=== PATIENT | female | born 1965 | race Caucasian/White ===

== ENCOUNTER 2017-09-29 11:01 | Inpatient (IN) | payer OTHER, SELFPAY ==
--- NOTE | 2017-09-26 08:12 | EKG12_ITS ---
Test Reason : PREOP Blood Pressure : / mmHG Vent. Rate : 058 BPM Atrial Rate : 058 BPM P-R Int : 132 ms QRS Dur : 074 ms QT Int : 406 ms P-R-T Axes : 039 -04 005 degrees QTc Int : 398 ms Sinus bradycardia Moderate voltage criteria for LVH, may be normal variant Borderline ECG Confirmed by HARITHA FRANKLIN, ASHLEY ([id number]), school photograph editor ARTURO NEWTON ([id number]) on 09/28/2017 2:29:24 PM Referred By: BHANU Confirmed By:ASHLEY MG MD
[2017-09-26 08:55] LABS: Prothrombin Time (Protime)PT. 12.9 SECONDS (11.7-14.9)
[2017-09-26 08:56] LABS: Partial Thromboplast Time 28.6 Seconds (24.1-36.2)
[2017-09-26 09:26] LABS: AST(SGOT) 14 U/L (15-37); Alanine Aminotransfer ALT/SGPT 27 U/L (13-56); Albumin, Serum 3.4 g/dL (3.2-5.0); Alkaline Phosphatase 113 U/L (45-117); Bilirubin, Direct 0.06 mg/dL (0.00-0.30); Globulin 3.9 g/dL (2.2-4.2); Protein, Total 7.3 g/dL (6.4-8.2)
[2017-09-29] VITALS (10 sets, daily range): BP systolic 101–137; BP diastolic 59–82; PULSE 55–76; RESP 16–18; TEMP 36.4–36.6; O2SAT 92–100; BMI 42.4
--- NOTE | 2017-09-29 | IMM_PTH ---
PATIENT: OSCAR FAGAN LOC: MS2 U#:[id number] AGE/SX: 51/F [place] [facility] RE09/29/[address]: Dr. Sky Jade MD : 1965 BED: 1 DIS: 10/02/2017 SPEC #: [id number] RECD: 10/02/17 13:02 STATUS: IONA REEvan #: [id number] BAUTISTA: 09/29/17 00:[address]: Sky Jade DEPT: IMMUNOHISTOCHEMISTRY RECD BY: Tiffany Stark ENTERED: 10/02/17 13:04 SP TYPE: IMMUNO OTHR DR: Dr. Ashish Partida DO Tissues: A - Right colon Procedures: MSH2 (add) MLH-1 (add) MSH6 (add) Anti-PMS2 (add) CHAUDHARY-2 (add) P53 (add) KI-67 (initial) PHYSICIAN & INSTITUTION [place] [id number] SPECIMEN INFORMATION: Tissue Source: A ? Right colon Clinical Info: Cecum mass, invasive adenocarcinoma Specimen Number: [id number] CPT code: 38690, 91741 x6 METHODOLOGY: Deparaffinized sections of prefer/formalin-fixed tissue or PAP/DQ stained slides are incubated with monoclonal/polyclonal antibodies/oligonucleotide probes. Localization is made via biotin free immunoperoxidase method. Appropriate controls are performed and reacted as expected. Results on target cell population are indicated in the following table: RESULTS: ANTIBODY / CLONE RESULT Block A COLON CANCER PROFILE (Prognostic Markers) Ki-67 (30-9) positive, high P53 (DO-7) negative MSH2 (25D12) positive MSH6 (44) positive MLH-1 (M1) positive PMS2 (ZVG1084) positive CHAUDHARY-2 (SP21) positive These tests were developed and their performance characteristics determined by [facility]. They may not have been cleared or approved by the U.S. Food and Drug Administration. The FDA has determined that such clearance or approval is not necessary. INTERPRETATION: A. Right colon, hemicolectomy: Invasive adenocarcinoma. Result of Microsatellite Instability Study: Negative (no loss of mismatch protein; no microsatellite instability detected). SJ:griselda 10/05/17
--- NOTE | 2017-09-29 13:00 | COL._PTH ---
PATIENT: OSCAR FAGAN LOC: MS2 U#:[id number] AGE/SX: 51/F ROOM: [facility]216 RE09/29/[address]: Dr. Sky Jade MD : 1965 BED: 1 DIS: 10/02/2017 SPEC #: [id number] RECD: 09/30/17 11:14 STATUS: IONA ROCKY #: [id number] BAUTISTA: 09/29/17 13:[address]: Sky Jade DEPT: SURGICAL PATHOLOGY RECD BY: Dhruv Siddiqui ENTERED: 09/30/17 11:14 SP TYPE: COLON OTHR DR: Dr. Ashish Partida DO Tissues: A - Colon, NOS B - HERNIA Procedures: Surgery Specimen Level II Surgery Specimen Level HEADER OPERATION: Laparoscopic colectomy, partial right hemicolectomy PRE-OP DIAGNOSIS: Cecum mass, invasive adenocarcinoma TISSUE SUBMITTED: A ? Right colon, B ? Hernia sac MICROSCOPIC DIAGNOSIS A. Right colon, hemicolectomy: Invasive adenocarcinoma. One out of 24 lymph nodes positive for metastatic carcinoma. B. Hernia sac: Mesothelial-lined fibroadipose, fibroconnective tissue and smooth muscle tissue, consistent with hernia sac. COLON CANCER SUMMARY: Specimen ? terminal ileum, cecum, appendix and ascending colon Procedure ? right hemicolectomy Specimen length ? cecum with ascending colon 14 cm, small intestine 6 cm, appendix 5 cm in length and 0.5 cm in diameter Tumor site ? cecum, ascending colon Tumor size ? 0.8 x 0.7 cm (measured microscopically, the polyp measures 2.5 x 2.5 x 0.5 cm). Macroscopic tumor perforation ? not identified Histologic type - adenocarcinoma Histologic grade ? low grade (moderately differentiated) Histologic features suggestive of Microsatellite Instability: Intratumoral lymphocytic response (tumor infiltrating lymphocyte) - mild Peritumoral lymphocytic response (Crohn-like) - mild Tumor subtype and differentiation: - Mucinous tumor component ? not identified - Medullary tumor component - not identified - High histologic grade ? poorly differentiated ? present, <5% of the tumor Microscopic tumor extension ? tumor invades submucosa Margins ? margins are free of tumor. The tumor is 6 cm away from the closest proximal axial margin. Treatment effect ? no known prior treatment. Lymph-Vascular invasion ? not identified Perineural invasion ? not identified Tumor deposits ? 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 not applicable Additional pathologic findings ? appendix with focal hyperplastic changes Ancillary studies: See microsatellite instability study by IHC ([id number]) for complete details. Microsatellite instability - Negative (no loss of mismatch protein; no microsatellite instability detected). Immunohistochemistry Studies for Mismatch Repair Proteins: MLH1 - Intact nuclear positivity, tumor cells MSH2 - Intact nuclear positivity, tumor cells MSH6 - Intact nuclear positivity, tumor cells PMS2 - Intact nuclear positivity, tumor cells PATHOLOGIC STAGE: pT1 pN1a Mx The above summary is in compliance with [employer] [place] [employer] (CAP) Cancer Protocols Checklist and [place] Joint Committee on Cancer (AJCC), Staging Manual, 8th Ed. SJ:griselda 10/05/17 COMMENT A.The focus of metastasis in the lymph node measures 0.5 x 0.5 cm. Extranodal extension is not seen. MICROSCOPIC DESCRIPTION Slides are reviewed. GROSS DESCRIPTION A - Received in fixative is one container labeled with the patient's name and designated right colon. The specimen consists of a right hemicolectomy specimen, previously opened, consisting of cecum with ascending colon, segment of small intestine, appendix, attached pericolonic adipose tissue and omentum. The cecum with ascending colon measures 14 cm in length. The small intestine measures 6 cm in length. The appendix measures 5 cm in length and 0.5 cm in diameter. Both resection margins are stapled. The lumen contains a small amount of fecal material. There is a sessile, polypoid mass adjacent to the ileocecal valve in the cecum/ascending colon area identified by a suture measuring 2.5 x 2.5 x 0.5 cm. No other lesion is identified. The omentum measures 10 x 10 x 3 cm. Sections of omentum do not reveal any mass lesion. Sections of pericolonic adipose tissue show two lymph nodes. The largest lymph node measures 1.5 cm in greatest dimension. Sections will be submitted after overnight fixation. / SJ:griselda 09/30/17 Sections of the appendix reveal pinpoint lumen. Sections of the tumor do not reveal involvement into the underlying adipose tissue. No other mucosal lesion is identified. Sections of the pericolonic adipose tissue reveal multiple lymph nodes. The largest lymph node measures 1.5 cm in greatest dimension. The pericolonic adipose tissue is fixed in lymph node revealing solution. Digital Camera Technician sections are submitted as follows: 1 ? appendix, 2 ? proximal and distal resection margins, 3-6 ? tumor, entirely submitted, 7 ? service representative section of ileocecal valve, small and large intestine, 8 ? omentum, 9 ? multiple lymph nodes, 10 ? multiple lymph nodes, 11 ? one bisected lymph node, 12 - one bisected lymph node, 13 ? multiple lymph nodes, 14 - one bisected lymph node (largest lymph node), 15 ? multiple lymph nodes. / JEREMY:griselda 10/01/17 B - Received in fixative is one container labeled with the patient's name and designated hernia sac. The specimen consists of a piece of congested soft tissue measuring 5 x 3.5 x 1 cm. No mass lesion is identified. Digital Camera Technician sections are submitted in one cassette. / JEREMY:griselda 09/30/17 TC:0 CPT: 26201, 95099
[2017-09-29] MEDS: Bupivacaine Mpf 0.5% 30 ML VIAL (17:33)
--- NOTE | 2017-09-29 17:40 | OP.PCM_ITS ---
Report of Operation Date of Procedure: 09/29/17 Pre-Operative Diagnosis: cecal colon cancer Post-Operative Diagnosis: cecal colon cancer - Surgery/Procedure Performed:: laparoscopic right hemicolectomy outside cutter hand: Brittany Mcdowell outside cutter hand: Bryson Chandler Type of Anesthesia:: General Anesthesiologist: Bobby Mistry - ASA2 Specimen's removed: right colon, hernia sac Drains: none Estimated Blood Loss (mL): 100 Fluids Replaced: 2000 Description of Procedure: The patient was brought to the operating suite. Sign in was performed verifying patient, site, procedure, position, and DVT prophylaxis with SCDs. Patient 2 g of cefotetan. Preoperative bowel prep of mechanical and antibiotic comprised of GoLYTELY and then neomycin and Flagyl 1 g 3 doses evening before was given Following induction of general anesthetic. The patient?s abdomen was prepped and draped in the usual fashion. Timeout was performed verifying patient, site , position. Local anesthetic was injected below the umbilicus. the patient had a previous umbilical to below the midline incision with the scar going through the umbilicus. The keloid scar was excised completely Incision made and dissection carried down to the umbilical root fascia. 2 stay sutures were placed. Incision made in the fascia, the peritoneum entered under direct visualization. A 10 mm Hackett trocar was inserted and secured with the stay sutures. Pneumoperitoneum to 15 mmHg was insufflated. Visual inspection revealed omentum stuck at the level the umbilicus and unknown fascial defect approximately 6 cm below the umbilicus with omentum incarcerated into that defect. Harmonic Scalpel was used to mobilize the omentum from its adhesions at the level the umbilicus. The hernia defect with incarcerated omentum was then reduced with pressure and the Harmonic scalpel.. 1 - 5 mm port was placed below the level of umbilicus and 2 5mm ports were placed in the standard midline position [place] level of umbilicus. Mobilization the avascular plane was undertaken from the base of the cecum up and around the hepatic flexure. Division of the lesser sac from the midline to the hepatic flexure was undertaken. When this was fully mobilized. the patient had a previous laparoscopic cholecystectomy. The transverse colon and lesser sac were adherent to the liver at the site of the cholecystectomy incision. This required significant mobilization off of the liver and the lesser sac was somewhat adherent to the transverse colon through dissection. Later on .The duodenum was visualized from the right flank region. Next, the terminal ileum area was brought up and a cleavage point noted in the mesentery. Harmonic Scalpel was used to create a window in the terminal ileal mesentery and division was taken down to the ileocolic root. Next the transverse colon was grasped and the vasculature coming from the middle colic vessel was identified. A window was made in the bare area proximal to the middle colic vessels just overlying the duodenal sweep. This was also fully divided. Dissection was then carried out at the ileal colic vessel root. The artery and vein were identified and doubly clipped proximally and singly clipped distally with Hem-o-alon clips. the omentum was divided at the midpoint of the transverse colon with plans to have the proximal half of the omentum sent with the specimen. With full dissection of the mesentery and full mobilization the colon, the umbilical incision was extended and a wound protector placed. The terminal ileum and cecum ascending colon part of the transverse colon were delivered through the wound protector. Complete division of the mesentery to the bowel was undertaken at both sites. The bowel was transected with an intestinal load echelon stapler. Following this, a functional stapled end-to-end anastomosis was performed between the ileum and transverse colon with an echelon stapler. The staple line was checked for hemostasis and following this the anastomosis closed with a TA stapler creating a wide triangle opening that was easily palpable. A 3-0 silk suture was used to take tension off the apex of the staple line. At this point, the specimen was opened on the back table. There was noted to be tumor in the expected location. Gown and gloves were changed. pneumoperitoneum was reestablished. There is a significant mesenteric defect so the mesentery was closed with interrupted hemoclips to prevent internal herniation. There was good anatomic positioning of the small bowel. It was good hemostasis along the incisions. the above incision was made down to the level of the infraumbilical fascial defect. The hernia sac was fully dissected bluntly using electrocautery. Following this, the infraumbilical to umbilical fascial defect was closed with a running 0 PDS suture. Skin was closed with interrupted 4-0 Monocryl subcuticular sutures. Steri-Strips and bandages were applied. Pneumoperitoneum was reestablished. The 5mm ports were removed under direct visualization with no signs of bleeding. Pneumoperitoneum was released. The patient was brought to recovery room in stable condition. - Admit VTE Documentation VTE Present on Admission: No VTE Mechan Device Prophylaxis: SCD's VTE Pharm Prophylaxis ordered?: Yes
[2017-09-29] MEDS: Ketorolac 30 MG/ML Syringe IV (18:11)
[2017-09-29] MEDS: proCHLORPERazine 10 MG/2 ML Vial IV (19:24)
[2017-09-29] MEDS: Morphine 4 MG/ML Syringe IV (19:47)
[2017-09-29] MEDS: Lactated Ringers 1,000 ML 100 ML IV (21:17)
[2017-09-30] MEDS: Morphine 4 MG/ML Syringe IV (00:38)
[2017-09-30] MEDS: Enoxaparin 30 MG/0.3 ML Syringe SC (05:38)
[2017-09-30] MEDS: Lactated Ringers 1,000 ML 100 ML IV ×2 (05:43→15:59)
[2017-09-30 05:46] VITALS: BP 117/74; PULSE 75; RESP 16; TEMP 36.8; O2SAT 98
[2017-09-30] MEDS: Ibuprofen 400 MG Tablet PO ×2 (05:50→16:06)
[2017-09-30 06:54] LABS: Absolute Lymphocyte Count 1.78 X10^3/ul (0.83-4.51); Absolute Neutrophil Count 13.6 X10^3/uL (2.0-7.7); Basophil# 0.02 X10^3/uL; Basophil% 0.1 % (0-1); Eosinophil# 0.02 X10^3/uL; Eosinophils% 0.1 % (0-5); Hematocrit 37.3 % (37-47); Hemoglobin 12.5 g/dl (12.0-15.0); Lymphocyte # 1.78 X10^3/ul (4.0); Lymphocyte % 10.7 % (19-41); Mean Corp Hgb Conc 33.5 g/gl (32-36); Mean Corpuscular Hgb 31.9 pg (27.0-32.0); Mean Corpuscular Volume 95.2 fL (81-99); Mean Platelet Vol. 9.8 fl (6.2-12.0); Monocyte# 1.17 X10^3/uL; Neutrophil # 13.59 X10^3/uL (2.7-7.7); Neutrophil % 81.7 % (47-70); Platelet Count 336 K/mm3 (150-450); RBC Distribution Width CV 13.2 % (11.6-14.6); RBC Distribution Width SD 44.8 fl (35.1-43.9); Red Blood Count 3.92 M/mm3 (4.2-5.4); White Blood Count 16.7 K/mm3 (4.4-11.0)
[2017-09-30 07:01] LABS: Differential Indicated SCAN CRITERIA MET; POSITIVE COUNT NO; POSITIVE DIFFERENTIAL NO; POSITIVE MORPHOLOGY YES
[2017-09-30 07:09] LABS: ALB/GLOB Ratio 0.4 RATIO (0.9-2.4); AST(SGOT) 13 U/L (15-37); Alanine Aminotransfer ALT/SGPT 11 U/L (13-56); Albumin, Serum 1.6 g/dL (3.2-5.0); Alkaline Phosphatase 144 U/L (45-117); Anion Gap 5 (5-15); BUN 8 mg/dL (7-18); BUN/Creat Ratio 16.2 RATIO (10-20); Calcium,Total 7.8 mg/dL (8.5-10.1); Chloride 100 mmol/L (98-107); Creatinine, Serum 0.49 mg/dL (0.55-1.02); EST Glomerular Filtration Rate 139 mL/min (>60); Est Glom Filt Rate - Afr Amer 168 mL/min (>60); Estimated Creatinine Clearance 106.22 ml/min; Globulin 3.8 g/dL (2.2-4.2); Glucose 190 mg/dL (74-106); Potassium 4.3 mmol/L (3.5-5.1); Protein, Total 5.4 g/dL (6.4-8.2); Sodium Level 133 mmol/L (136-145)
[2017-09-30 07:38] LABS: Reactive Lymphocyte RARE
[2017-09-30 11:39] VITALS: BP 115/72; PULSE 76; RESP 16; TEMP 37.1; O2SAT 97
--- NOTE | 2017-09-30 13:48 | PN.SURG_ITS ---
Subjective: incisional pain - tolerable - Physical Exam General: Alert, Oriented x3 Lungs: Clear to auscultation, Normal air movement Cardiovascular: Regular rate, Regular Rhythm Abdomen: Soft, Hypoactive Bowel Sounds, Tender - Incisions-incisions clean, dry and intact Vital Signs Temp Pulse Resp BP Pulse Ox 98.7 F 76 16 115/72 97 09/30/17 11:39 09/30/17 11:39 09/30/17 11:39 09/30/17 11:39 09/30/17 11:39 Oxygen Flow Rate (L/min) 2 Oxygen Delivery Method Room Air Weight: 105.3 kg Body Mass Index (BMI) 42.4 Intake and Output for Last 24 Hours 09/28/17 09/29/17 09/30/17 23:59 23:59 23:59 Intake Total 2600 / 2600 1949 / 1949 Output Total 600 / 600 Balance 2600 / 2600 1349 / 1349 Laboratory Tests Past 24 Hrs 09/30/17 09/30/17 06:25 06:25 WBC 16.7 H RBC 3.92 L Hgb 12.5 Hct 37.3 MCV 95.2 MCH 31.9 MCHC 33.5 RDW 13.2 RDW Differential 44.8 H Plt Count 336 MPV 9.8 Immature Gran % (Auto) 0.400 Neut % (Auto) 81.7 H Lymph % (Auto) 10.7 L [place] % (Auto) 7.0 Eos % (Auto) 0.1 Baso % (Auto) 0.1 Absolute Neuts (auto) 13.6 H Absolute Lymphs (auto) 1.78 Total Counted Not Reportable Reactive Lymphocytes RARE Sodium 133 L Potassium 4.3 Chloride 100 Carbon Dioxide 28.0 Anion Gap 5 BUN 8 Creatinine 0.49 L Estim Creat Clear Calc 106.22 Est GFR (MDRD) Af Amer 168 Est GFR (MDRD) Non-Af 139 BUN/Creatinine Ratio 16.2 Glucose 190 H Calcium 7.8 L Total Bilirubin 0.30 AST 13 L ALT 11 L Alkaline Phosphatase 144 H Total Protein 5.4 L Albumin 1.6 L Globulin 3.8 Albumin/Globulin Ratio 0.4 L Medical Necessity - Tobacco Use Smoking Status: Never smoker Assessment/Plan POD # 1 s/p laparoscopic right hemicolectomy with extensive lysis of adhesions at the midline and to the gallbladder fossa for cecal colon cancer. The patient is currently doing well. Her abdominal exam is as expected and has few bowel sounds. We're encouraging sips of sugar-based liquids. Minimal narcotics. Ambulation and chewing gum to assist return of bowel function. The patient is receiving Lovenox subcutaneous and has SCDs for DVT prophylaxis. She is encouraged to ambulate and utilize incentive spirometer.
--- NOTE | 2017-09-30 14:25 | PCA ---
pt out walking in the [place]
--- NOTE | 2017-09-30 15:04 | PCA ---
pt out walking in the [place]
[2017-09-30 17:39] VITALS: BP 122/76; PULSE 74; RESP 16; TEMP 36.9; O2SAT 98
[2017-09-30 20:41] VITALS: BP 129/86; PULSE 77; RESP 16; TEMP 36.9; O2SAT 94
[2017-10-01] MEDS: Lactated Ringers 1,000 ML 100 ML IV ×3 (01:53→23:29)
[2017-10-01 02:32] VITALS: BP 133/78; PULSE 66; RESP 18; TEMP 36.8; O2SAT 93
[2017-10-01] MEDS: Ibuprofen 400 MG Tablet PO ×2 (06:06→12:57)
[2017-10-01] MEDS: Enoxaparin 30 MG/0.3 ML Syringe SC (06:07)
[2017-10-01 06:22] LABS: Absolute Lymphocyte Count 1.17 X10^3/ul (0.83-4.51); Absolute Neutrophil Count 4.6 X10^3/uL (2.0-7.7); Basophil# 0.01 X10^3/uL; Basophil% 0.2 % (0-1); Eosinophil# 0.19 X10^3/uL; Eosinophils% 2.9 % (0-5); Hemoglobin 11.5 g/dl (12.0-15.0); Lymphocyte # 1.17 X10^3/ul (4.0); Lymphocyte % 17.8 % (19-41); Mean Corp Hgb Conc 31.1 g/gl (32-36); Mean Corpuscular Hgb 27.9 pg (27.0-32.0); Mean Corpuscular Volume 89.8 fL (81-99); Mean Platelet Vol. 10.2 fl (6.2-12.0); Monocyte# 0.57 X10^3/uL; Monocyte% 8.7 % (0-10); Neutrophil # 4.61 X10^3/uL (2.7-7.7); Neutrophil % 70.2 % (47-70); Platelet Count 195 K/mm3 (150-450); RBC Distribution Width CV 13.4 % (11.6-14.6); RBC Distribution Width SD 43.5 fl (35.1-43.9); Red Blood Count 4.12 M/mm3 (4.2-5.4); White Blood Count 6.6 K/mm3 (4.4-11.0)
[2017-10-01 06:23] LABS: POSITIVE COUNT NO; POSITIVE DIFFERENTIAL NO; POSITIVE MORPHOLOGY NO
[2017-10-01 06:38] LABS: ALB/GLOB Ratio 0.8 RATIO (0.9-2.4); AST(SGOT) 17 U/L (15-37); Alanine Aminotransfer ALT/SGPT 26 U/L (13-56); Albumin, Serum 2.7 g/dL (3.2-5.0); Alkaline Phosphatase 85 U/L (45-117); Anion Gap 7 (5-15); BUN 8 mg/dL (7-18); BUN/Creat Ratio 12.7 RATIO (10-20); Chloride 110 mmol/L (98-107); Creatinine, Serum 0.63 mg/dL (0.55-1.02); EST Glomerular Filtration Rate 105 mL/min (>60); Est Glom Filt Rate - Afr Amer 127 mL/min (>60); Estimated Creatinine Clearance 82.62 ml/min; Globulin 3.4 g/dL (2.2-4.2); Glucose 92 mg/dL (74-106); Potassium 3.8 mmol/L (3.5-5.1); Protein, Total 6.1 g/dL (6.4-8.2); Sodium Level 146 mmol/L (136-145)
--- NOTE | 2017-10-01 07:04 | PN.SURG_ITS ---
Subjective: no flatus - Physical Exam General: Alert, Oriented x3, Cooperative Lungs: Clear to auscultation, Normal air movement Cardiovascular: Regular rate, No murmurs Abdomen: Bowel Sounds Present, Soft, Non Tender, Hypoactive Bowel Sounds Vital Signs Temp Pulse Resp BP Pulse Ox 98.2 F 66 18 133/78 H 93 10/01/17 02:32 10/01/17 02:32 10/01/17 02:32 10/01/17 02:32 10/01/17 02:32 Oxygen Flow Rate (L/min) 2 Oxygen Delivery Method Room Air Weight: 105.3 kg Body Mass Index (BMI) 42.4 Intake and Output for Last 24 Hours 09/29/17 09/30/17 10/01/17 23:59 23:59 23:59 Intake Total 2600 / 2600 1949 / 1949 1994 Output Total 1600 / 1600 Balance 2600 / 2600 349 / 349 1994 Laboratory Tests Past 24 Hrs 09/30/17 09/30/17 10/01/17 06:25 06:25 05:15 WBC 6.6 RBC 4.12 L Hgb 11.5 L Hct 37.0 MCV 89.8 MCH 27.9 MCHC 31.1 L RDW 13.4 RDW Differential 43.5 Plt Count 195 MPV 10.2 Immature Gran % (Auto) 0.200 Neut % (Auto) 70.2 H Lymph % (Auto) 17.8 L [place] % (Auto) 8.7 Eos % (Auto) 2.9 Baso % (Auto) 0.2 Absolute Neuts (auto) 4.6 Absolute Lymphs (auto) 1.17 Total Counted Not Reportable Not Reportable Reactive Lymphocytes RARE Sodium 133 L Potassium 4.3 Chloride 100 Carbon Dioxide 28.0 Anion Gap 5 BUN 8 Creatinine 0.49 L Estim Creat Clear Calc 106.22 Est GFR (MDRD) Af Amer 168 Est GFR (MDRD) Non-Af 139 BUN/Creatinine Ratio 16.2 Glucose 190 H Calcium 7.8 L Total Bilirubin 0.30 AST 13 L ALT 11 L Alkaline Phosphatase 144 H Total Protein 5.4 L Albumin 1.6 L Globulin 3.8 Albumin/Globulin Ratio 0.4 L 10/01/17 05:15 WBC RBC Hgb Hct MCV MCH MCHC RDW RDW Differential Plt Count MPV Immature Gran % (Auto) Neut % (Auto) Lymph % (Auto) [place] % (Auto) Eos % (Auto) Baso % (Auto) Absolute Neuts (auto) Absolute Lymphs (auto) Total Counted Reactive Lymphocytes Sodium 146 H Potassium 3.8 Chloride 110 H Carbon Dioxide 29.0 Anion Gap 7 BUN 8 Creatinine 0.63 Estim Creat Clear Calc 82.62 Est GFR (MDRD) Af Amer 127 Est GFR (MDRD) Non-Af 105 BUN/Creatinine Ratio 12.7 Glucose 92 Calcium 8.0 L Total Bilirubin 0.30 AST 17 ALT 26 Alkaline Phosphatase 85 Total Protein 6.1 L Albumin 2.7 L Globulin 3.4 Albumin/Globulin Ratio 0.8 L Medical Necessity - Tobacco Use Smoking Status: Never smoker Assessment/Plan POD # 2 s/p laparoscopic right hemicolectomy with extensive lysis of adhesions at the midline and to the gallbladder fossa for cecal colon cancer. The patient is currently doing well. Her abdominal exam is as expected and has few bowel sounds. We're encouraging sips of sugar-based liquids. Minimal narcotics. Ambulation and chewing gum to assist return of bowel function. The patient is receiving Lovenox subcutaneous and has SCDs for DVT prophylaxis. She is encouraged to ambulate and utilize incentive spirometer.
[2017-10-01 07:15] VITALS: O2SAT 94
[2017-10-01 07:48] VITALS: BP 139/86; PULSE 66; RESP 18; TEMP 37.1; O2SAT 96
--- NOTE | 2017-10-01 09:00 | PCA ---
pt out walking in the [place]
[2017-10-01 13:45] VITALS: BP 152/86; PULSE 73; RESP 18; TEMP 36.7; O2SAT 99
[2017-10-01 20:16] VITALS: BP 142/63; PULSE 74; RESP 20; TEMP 37; O2SAT 98
[2017-10-01] MEDS: Mag Hydrox/Al Hydrox/Simeth 30 ML UDC PO (20:59)
[2017-10-02 02:50] VITALS: BP 126/68; PULSE 66; RESP 16; TEMP 36.4; O2SAT 96
[2017-10-02 06:01] LABS: Basophil# 0.02 X10^3/uL; Basophil% 0.3 % (0-1); Eosinophil# 0.28 X10^3/uL; Eosinophils% 4.7 % (0-5); Hematocrit 37.1 % (37-47); Hemoglobin 11.8 g/dl (12.0-15.0); Lymphocyte % 20.2 % (19-41); Mean Corp Hgb Conc 31.8 g/gl (32-36); Mean Corpuscular Hgb 28.4 pg (27.0-32.0); Mean Corpuscular Volume 89.2 fL (81-99); Mean Platelet Vol. 9.8 fl (6.2-12.0); Monocyte% 6.7 % (0-10); Neutrophil # 4.04 X10^3/uL (2.7-7.7); Neutrophil % 67.9 % (47-70); Platelet Count 191 K/mm3 (150-450); RBC Distribution Width CV 13.4 % (11.6-14.6); RBC Distribution Width SD 43.5 fl (35.1-43.9); Red Blood Count 4.16 M/mm3 (4.2-5.4)
[2017-10-02 06:04] LABS: POSITIVE COUNT NO; POSITIVE DIFFERENTIAL NO; POSITIVE MORPHOLOGY NO
--- NOTE | 2017-10-02 06:08 | PCM.DC.REC ---
Discharge Diet: No Restrictions Discharge Activity: Return to Normal Activity, May Not Drive - while taking narcotic pain medications. Additional Activity Instructions:: Do not drive or work with heavy equipment or sign legal documents for 24 hours. Be aware that pain medications may cause nausea. You should typically eat light foods as you take your pain medications. Pain medications may also cause constipation, if you have difficulty with this please discuss with your doctor. Allergies/Adverse Reactions: Allergies No Known Allergies Allergy (Verified 09/25/17 14:58) Medications to take at Discharge Ibuprofen [Motrin] 400 mg PO Q4H PRN PRN tablet 10/02/17 Primary Care Physician: Ashish Partida DO [Primary Care Provider] - Please Follow Up With: Sky Jade MD - [phone] When: Plan to have a follow up approximately 7 days after surgery.
[2017-10-02] MEDS: Enoxaparin 30 MG/0.3 ML Syringe SC (06:13)
[2017-10-02 06:22] VITALS: O2SAT 96
[2017-10-02 06:25] LABS: Anion Gap 6 (5-15); BUN 5 mg/dL (7-18); BUN/Creat Ratio 8.3 RATIO (10-20); Calcium,Total 8.3 mg/dL (8.5-10.1); Chloride 110 mmol/L (98-107); EST Glomerular Filtration Rate 111 mL/min (>60); Est Glom Filt Rate - Afr Amer 135 mL/min (>60); Estimated Creatinine Clearance 86.75 ml/min; Glucose 93 mg/dL (74-106); Potassium 3.7 mmol/L (3.5-5.1); Sodium Level 143 mmol/L (136-145)
[2017-10-02 06:29] VITALS: BP 131/83; PULSE 68; RESP 16; TEMP 36.8; O2SAT 98
--- NOTE | 2017-10-02 06:41 | PCM.PN.SRG ---
Subjective: more BMs, hungry - Physical Exam General: Alert, Oriented x3, Cooperative Lungs: Clear to auscultation, Normal air movement Cardiovascular: Regular rate, No murmurs Abdomen: Bowel Sounds Present, Soft, Non Tender Vital Signs Temp Pulse Resp BP Pulse Ox 98.2 F 68 16 131/83 H 98 10/02/17 06:29 10/02/17 06:29 10/02/17 06:29 10/02/17 06:29 10/02/17 06:29 Oxygen Flow Rate (L/min) 2 Oxygen Delivery Method Room Air Weight: 105.3 kg Body Mass Index (BMI) 42.4 Intake and Output for Last 24 Hours 09/30/17 10/01/17 10/02/17 23:59 23:59 23:59 Intake Total 1949 / 1949 3896 / 3896 664 / 664 Output Total 1600 / 1600 Balance 349 / 349 3896 / 3896 664 / 664 Laboratory Tests Past 24 Hrs 10/02/17 10/02/17 05:45 05:45 WBC 6.0 RBC 4.16 L Hgb 11.8 L Hct 37.1 MCV 89.2 MCH 28.4 MCHC 31.8 L RDW 13.4 RDW Differential 43.5 Plt Count 191 MPV 9.8 Immature Gran % (Auto) 0.200 Neut % (Auto) 67.9 Lymph % (Auto) 20.2 [place] % (Auto) 6.7 Eos % (Auto) 4.7 Baso % (Auto) 0.3 Absolute Neuts (auto) 4.0 Absolute Lymphs (auto) 1.20 Total Counted Not Reportable Sodium 143 Potassium 3.7 Chloride 110 H Carbon Dioxide 27.0 Anion Gap 6 BUN 5 L Creatinine 0.60 Estim Creat Clear Calc 86.75 Est GFR (MDRD) Af Amer 135 Est GFR (MDRD) Non-Af 111 BUN/Creatinine Ratio 8.3 L Glucose 93 Calcium 8.3 L Medical Necessity - Tobacco Use Smoking Status: Never smoker Assessment/Plan POD # 3 s/p laparoscopic right hemicolectomy with extensive lysis of adhesions at the midline and to the gallbladder fossa for cecal colon cancer. The patient is currently doing well. Her abdominal exam is as expected and has few bowel sounds. We're encouraging sips of sugar-based liquids. Minimal narcotics. Ambulation and chewing gum to assist return of bowel function. The patient is receiving Lovenox subcutaneous and has SCDs for DVT prophylaxis. She is encouraged to ambulate and utilize incentive spirometer. WIll dischrage to home. She does not want narcotic pain medications. Will have her follow up in one week
--- NOTE | 2017-10-02 06:43 | PCM.DC.SUM ---
Discharge Date and Diagnosis Date of Admission: 09/29/17 Date of Discharge: 10/02/17 - Primary Discharge Diagnosis cecal colon cancer Hospital Course and Treatment Operations: colectomy Summary of Care Provided: The patient is a 51 year old F with a cecal cancer she underwent laparoscopic right hemicolectomy with extensive lysis of adhesions at the midline and to the gallbladder fossa for cecal colon cancer. The patient is currently doing well. Her abdominal exam is as expected and return of normal bowel sounds. We're encouraging sips of sugar-based liquids. Minimal narcotics. Ambulation and chewing gum to assist return of bowel function. The patient is receiving Lovenox subcutaneous and has SCDs for DVT prophylaxis. She is encouraged to ambulate and utilize incentive spirometer. WIll discharge to home. She does not want narcotic pain medications. Will have her follow up in one week Discharge Diet: No Restrictions Discharge Activity: Return to Normal Activity, May Not Drive - while taking narcotic pain medications. Additional Activity Instructions:: Do not drive or work with heavy equipment or sign legal documents for 24 hours. Be aware that pain medications may cause nausea. You should typically eat light foods as you take your pain medications. Pain medications may also cause constipation, if you have difficulty with this please discuss with your doctor. Home Medications: Medications to take at Discharge Ibuprofen [Motrin] 400 mg PO Q4H PRN PRN tablet 10/02/17 Primary Care Physician: Ashish Partida DO [Primary Care Provider] - Please Follow Up With: Sky Jade MD - [phone] When: Plan to have a follow up approximately 7 days after surgery. Medical Necessity - Tobacco Use Smoking Status: Never smoker Meaningful Use Info Meaningful Use Diagnoses (Choose all that apply): None applicable
== END 2017-10-02 07:04 | disposition home or self-care (01) | DRG 331 ==
LOC: ACINP 11:05 → MS2 15:21
PROVIDERS: Admitting Provider Surgery; Family Provider Student in an Organized Health Care Education/Training Program; PCP Student in an Organized Health Care Education/Training Program; Visit Provider Surgery
PROC: 0DTF4ZZ Resection of Right Large Intestine, Percutaneous Endoscopic Approach (ICD-10-PCS; CPT 44205; principal; 2017-09-29 12:40)
DX: C18.0 Malignant neoplasm of cecum (principal); K43.2 Incisional hernia without obstruction or gangrene; K66.0 Peritoneal adhesions (postprocedural) (postinfection); M85.80 Other specified disorders of bone density and structure, unspecified site; Z78.0 Asymptomatic menopausal state; Z79.899 Other long term (current) drug therapy; Z86.2 Personal history of diseases of the blood and blood-forming organs and certain disorders involving the immune mechanism; Z85.3 Personal history of malignant neoplasm of breast; Z92.21 Personal history of antineoplastic chemotherapy; Z92.3 Personal history of irradiation
CPT/HCPCS: 36415; 80048; 80053; 80076; 85025; 85610; 85730; 88302; 88309; 88341; 88342; 93005; J7120; J2405